=== PATIENT | female | born 1995 | race Caucasian/White ===

== ENCOUNTER 2024-02-20 16:38 | Emergency (ER) | payer OTHER, SELFPAY ==
[2024-02-20 16:44] VITALS: BP 128/76
[2024-02-20 16:58] LABS: % Basophils 0.4 % (0-2); % Eosinophils 1.5 % (0-6); % Immature Granulocytes 0.3 % (0-0.5); % Lymphocytes 36.5 % (20.5-51.1); % Neutrophils 54.3 % (42.2-75.2); Absolute Eosinophils 0.2 10^3/uL (0-0.7); Absolute Lymphocytes 3.7 10^3/uL (1.2-3.4); Absolute Monocytes 0.7 10^3/uL (0.1-0.6); Absolute Neutrophils 5.4 10^3/uL (1.4-6.5); Hematocrit 36.6 % (37.0-47.0); Hemoglobin 12.8 g/dL (12.0-16.0); Mean Corpuscular Hgb 30.1 pg (27.0-31.0); Mean Corpuscular Volume 86.1 fL (81.0-99.0); Mean Platelet Volume 9.8 fL (7.4-10.4); Nucleated Red Blood Cells % 0 %; Platelet Count 308 10^3/uL (130-400); Red Blood Cell Count 4.25 10^6/uL (4.20-5.40)
[2024-02-20 17:16] LABS: ALT (SGPT) 18 U/L (0-35); AST (SGOT) 28 U/L (14-36); Albumin 4.8 g/dl (3.5-5.0); Alkaline Phosphatase 74 U/L (38-126); Blood Urea Nitrogen 12 mg/dl (7-17); Calcium 9.6 mg/dl (8.4-10.2); Carbon Dioxide 19 mmol/L (22-30); Chloride 106 mmol/L (98-107); Glucose 95 mg/dl (70-99); Potassium 4.1 mmol/L (3.5-5.1); Sodium 140 mmol/L (135-145); Total Bilirubin 0.5 mg/dl (0.2-1.3); Total Protein 7.4 g/dl (6.3-8.2); eGFR > 60.00
[2024-02-20 17:34] LABS: Urine Albumin Negative (Neg - Trace); Urine Bilirubin 2+ (Negative); Urine Character Clear (Clear); Urine Color Yellow; Urine Glucose Negative (Negative); Urine Ketone Negative (Negative); Urine Leukocyte Negative (Negative); Urine Nitrite Positive (Negative); Urine Occult Blood Negative (Negative); Urine Urobilinogen 2+ (Neg - 1+)
[2024-02-20 18:39] LABS: Urine Bacteria Few (Negative); Urine White Cell 0-2 /HPF (0-5)
--- NOTE | 2024-02-20 19:35 | ED.GENMED ---
History of Present Illness
General
Chief Complaint: Urinary Symptoms
Source: patient
Exam Limitations: none
Time Seen by Provider: 02/20/24 17:41
Nursing documentation reviewed up to this point in time: agreed with
History of Present Illness
History of Present Illness:
28-year-old female presenting to the emergency department today with concerns of dysuria over the past month. Has been on multiple antibiotics without improvement. Denies any fevers flank pain or abdominal pain. Denies any vaginal symptoms or
concerns for STDs.
Past History
Past History
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
ED Past Surgical History: None
Social History
Tobacco: Smoker
Alcohol: Occasional
Drug: None
Personal: Single
Living: alone
Employment: Employed
Review of Systems
Review of Systems
Allergies reviewed?: Yes
All Other Systems: ROS reviewed and negative except as documented in HPI and ROS
Phy Exam
Physical Exam
Physical Exam:
GENERAL: Alert , in no apparent distress
EYE: pupils equal and reactive
NECK: Supple, no significant adenopathy.
ENT: o/p clr, mmm.
CARDIAC: Regular rate and rhythm .
LUNGS: Clear breath sounds bilaterally, no acute respiratory distress, no wheezes/rales/rhonchi
ABDOMEN: Soft, without focal tenderness, no r/g, no cvat
NEUROLOGICAL: Alert and oriented, no focal neuro deficits
SKIN: Warm and dry, skin intact.
MUSCULOSKELETAL: No edema, well perfused.
PSYCH: Normal and appropriate interaction.
Course
Orders/Labs/Results
Orders:
Orders
02/20/24 16:52
Complete Blood Count/With Diff Urgent
Comprehensive Metabolic Panel Urgent
02/20/24 17:23
Urinalysis Reflex To Culture Urgent
Date Specimen was Collected: 02/20/24
Time Specimen was Collected: 16:47
Urine Microscopic Reflex Cult Urgent
Chlamydia/GC by PCR Urgent
BEN Source: U
Specimen Description:
Source:: URINE
Date Specimen was Collected: 02/20/24
Time Specimen was Collected: 16:47
Comment: Add on by Gary Camargo Jr
Urine Culture Urgent
BEN Source: U
Specimen Description:
Date Specimen was Collected: 02/20/24
Time Specimen was Collected: 16:47
02/20/24 17:54
Add On- LAB Urgent
Tests Added?: GC Chlamydia
02/20/24 19:33
Ciprofloxacin HCl [Cipro] 500 mg PO ONCE ONE
Abnormal Lab Results
02/20/24 02/20/24
16:52 17:23
Hct 36.6 L %
(37.0-47.0)
Absolute Lymphs (auto) 3.7 H 10^3/uL
(1.2-3.4)
Absolute Monos (auto) 0.7 H 10^3/uL
(0.1-0.6)
Carbon Dioxide 19 L mmol/L
(22-30)
Urine Nitrite (Reflex) Positive A
(Negative)
Urine Bilirubin 2+ A
(Negative)
Urine Urobilinogen 2+ A
(Neg - 1+)
Urine Bacteria (Reflex) Few A
(Negative)
02/20/24 16:52
02/20/24 16:52
Vital Signs
Initial and Last Documented VS:
Initial Vital Signs
Temp Pulse Resp BP Pulse Ox
98.5 F 91 18 128/76 99
02/20/24 16:44 02/20/24 16:44 02/20/24 16:44 02/20/24 16:44 02/20/24 16:44
Last Documented Vital Signs
Temp Pulse Resp BP Pulse Ox
98.5 F 64 16 107/73 98
02/20/24 16:44 02/20/24 19:51 02/20/24 19:51 02/20/24 19:51 02/20/24 19:51
MDM/Problems Addressed
MDM/Problems Addressed:
28-year-old female presenting to the emergency department today with concerns of urinary tract symptoms over the past month. Has taken Keflex Macrobid and Bactrim without relief. On arrival here vital signs are normal. No evidence of Caio or
kidney stones without any flank pain or abdominal pain. Still has burning with urination. Urine does show positive nitrates but no significant white blood cells. There was few bacteria. Risk benefits of starting a new antibiotic were discussed
with the patient pending culture. She elected to take a few days of Cipro and will follow-up closely with urology. Return precautions given.
*Critical Care Note
Total Time (30-74mins, 75-104mins- exclusive of procedures): Not Applicable
ED Attending Note
-
Portions of this chart may have been created with voice recognition software.� Occasional wrong word or��sound alike� substitutions may have occurred due to the inherent limitations of voice recognition software.
Discharge Plan
Departure
Patient Disposition: Home (Routine Discharge)
Date of Disposition: 02/20/24
Time of Disposition: 19:35
Patient with high blood pressure during this ER visit?: No
Condition: Good
Covid-19: Not Applicable
Discharge Problem:
Dysuria
Instructions: Urinary Tract Infection, Adult (DC)
Prescriptions:
New
ciprofloxacin HCl 250 mg tablet
250 mg PO BID 3 Days Qty: 6 0RF
oxycodone-acetaminophen [Percocet] 5-325 mg tablet
1 tab PO Q8H PRN (Reason: Pain) Qty: 3 0RF
No Action
prenat.vits,edwina,kni-zjho-qzzgd Tablet
1 tab PO DAILY
acetaminophen 325 mg Tablet
650 mg PO Q4HPRN PRN (Reason: mild pain) Qty: 20 0RF
ibuprofen 600 mg Tablet
600 mg PO Q6HPRN PRN (Reason: moderate pain/cramps) Qty: 20 0RF
Referrals:
Augie Yepez MD [Active] - Follow up in 5-7 days
Activity Restrictions/Additional Instructions:
You came to the emergency department today with concerns of ongoing urinary symptoms.. Here you had a generally reassuring assessment but possible ongoing UTI. Please follow closely with urology and take the prescribed medication. Return to the
emergency department any worsening, new or concerning symptoms.
Interventions
Interventions:
*Risk Screen - Suicide Last Done: 02/20/24 16:44
*General Assessment Last Done: 02/20/24 16:44
*Neglect/Abuse Screening Last Done: 02/20/24 16:44
*ED COVID-19 Vaccine History Last Done: 02/20/24 16:44
*Nursing Disposition Last Done: 02/20/24 19:59
ED-Female Genitourinary Assessment Last Done: 02/20/24 18:15
Discharge Date and Time
Discharge Date/Time: 02/20/24 20:00
Print Language: GREENLANDIC
[2024-02-20] MEDS: CIPRO 500 MG PO (19:48)
[2024-02-20 19:51] VITALS: BP 107/73
== END 2024-02-20 20:00 | disposition home or self-care (01) ==
LOC: EMR 16:38
PROVIDERS: EMERGENCY PHYSICIAN Emergency Medicine; FAMILY PHYSICIAN Physician Assistant
DX: R30.0 Dysuria (principal); F17.200 Nicotine dependence, unspecified, uncomplicated
CPT/HCPCS: 99283; 80053; 81003; 81015; 85025; 87086; 87491; 87591

== ENCOUNTER → 2024-08-13 06:49 | Outpatient (REF) | payer OTHER, SELFPAY | LOC: EMG 06:49 | PROVIDERS: ATTENDING PHYSICIAN Orthopaedic Surgery Hand Surgery; FAMILY PHYSICIAN Physician Assistant | DX: M79.642 Pain in left hand (principal); M79.641 Pain in right hand | CPT/HCPCS: 95886; 95911 ==